=== PATIENT | female | born 1990 | race Caucasian/White ===

== ENCOUNTER 2018-03-22 17:42 | Emergency (ER) | payer OTHER ==
[~2018-03-22] VITALS: Ht 160 cm; Wt 118.2 kg
[2018-03-22] MEDS ORDERED: AMOX500C PO (17:48)
[2018-03-22 18:27] LABS: BASO # 0.1 10^3/uL (0.0-0.2); BASO % 0.8 % (0.0-1.0); EOS # 0.2 10^3/uL (0.0-0.50); EOS % 1.7 % (0.0-3.0); HEMATOCRIT 42.9 % (36.0-47.0); HEMOGLOBIN 14.5 g/dl (12.0-15.5); LYMPH # 2.9 10^3/uL (1.5-6.5); LYMPH % 24.6 % (24.0-44.0); MEAN CORPUSCULAR HEMOGLOBIN 29.7 pg (27.0-33.0); MEAN CORPUSCULAR HGB CONC 33.8 g/dl (32.0-36.5); MEAN CORPUSCULAR VOLUME 87.7 fl (80.0-96.0); MONO # 0.9 10^3/uL (0.0-0.8); MONO % 7.3 % (0.0-5.0); NEUTROPHILS # 7.8 10^3/uL (1.8-7.7); NEUTROPHILS % 65.3 % (36.0-66.0); PLATELET COUNT, AUTOMATED 295 10^3/uL (150-450); RED BLOOD COUNT 4.89 10^6/uL (4.00-5.40); WHITE BLOOD COUNT 11.9 10^3/uL (4.0-10.0)
[2018-03-22 18:59] LABS: APPEARANCE, URINE CLEAR (CLEAR); BACTERIA, URINE AUTO NEGATIVE (NEGATIVE); BILIRUBIN, URINE AUTO NEGATIVE (NEGATIVE); BLOOD, URINE BLOOD 3+ (NEGATIVE); COLOR, URINE YELLOW (YELLOW); GLUCOSE, URINE (UA) AUTO NEGATIVE (NEGATIVE); KETONE, URINE AUTO NEGATIVE (NEGATIVE); LEUKOCYTE ESTERASE, URINE AUTO TRACE (NEGATIVE); MUCUS, URINE SMALL (NEGATIVE); NITRITE, URINE AUTO NEGATIVE (NEGATIVE); PROTEIN, URINE AUTO NEGATIVE (NEGATIVE); RBC, URINE AUTO TNTC /HPF (0-3); SPECIFIC GRAVITY URINE AUTO 1.012 (1.002-1.035); SQUAMOUS EPITHELIAL CELL UR AU 1 /HPF (0-6); UROBILINOGEN, URINE AUTO 0.2 mg/dL (0.0-2.0); WBC, URINE AUTO 12 /HPF (0-3)
--- NOTE | 2018-03-22 19:47 | REPVR ---
EXAM: US First Trimester, Transabdominal and US , Transvaginal EXAM DATE/TIME: 03/22/2018 6:29 PM CLINICAL HISTORY: 28 years old, female; Signs and symptoms; Lmp or gestational age (in weeks): 9w2d; Other: Bleeding; ; Additional info: Vaginal bleeding TECHNIQUE: Real-time transabdominal obstetrical ultrasound of the maternal pelvis and a first trimester , less than 14 weeks 0 days, with image documentation. Transvaginal imaging was used for better evaluation of the fetus and adnexa. COMPARISON: No relevant prior studies available. FINDINGS: GESTATION: Gestation: A single intrauterine gestational sac is visualized. The gestational sac is identified within the lower uterine segment. The yolk sac is not visualized. Heart rate: No heart motion is identified. Placenta: No subchorionic bleed. Amniotic fluid: Amniotic fluid appears subjectively decreased for gestational age. BIOMETRY: Estimated gestational age: The estimated gestational age by crown rump length is 7 weeks 2 days. [place]-Rump length: The mean crown-rump length is 1.18 cm. MATERNAL: Uterus: The uterus measures 8.4 x 5.1 x 5.5 cm. Cervix: Limited evaluation. Right adnexa: The right ovary measures 3.3 x 2.8 x 2.9 cm. Within the right ovary, there is a 1.7 x 1.6 x 1.4 cm probable corpus luteum cyst. Left adnexa: The left ovary measures 2.1 x 2.1 x 2.0 cm. No left ovarian mass. Intraperitoneal: No intraperitoneal free fluid. IMPRESSION: 1. A single intrauterine gestational sac is visualized. No heart motion is identified. The gestational sac is identified within the lower uterine segment. 2. The estimated gestational age by crown rump length is 7 weeks 2 days. 3. The findings are diagnostic of failure based on the [employer] Consensus Conference on Early First Trimester Diagnosis of Miscarriage and Exclusion of a Viable Intrauterine - December 2011. 4. Within the right ovary, there is a 1.7 x 1.6 x 1.4 cm probable corpus luteum cyst. Electronically signed by: Dez Ingram On 03/22/2018 19:46:54 PM
[2018-03-22] MEDS ORDERED: NAPROXEN 250 MG TAB PO ONE (21:00)
[2018-03-22 21:29] VITALS: BP 143/93
== END 2018-03-22 21:31 | disposition home or self-care (01) ==
LOC: M ED 17:42
DX: O03.9 Complete or unspecified spontaneous abortion without complication (principal); I10 Essential (primary) hypertension

== ENCOUNTER → 2018-08-09 | Outpatient (CLI) | payer OTHER ==
[~2018-08-09] MED LIST: AMOX500C PO
--- NOTE | 2018-08-09 13:38 | REP ---
REASON: Right upper quadrant pain. COMPARISON: None. Multiple ultrasonographic images of the liver show the hepatic parenchymal echo pattern to be within normal limits. There is no intrahepatic or extrahepatic ductal dilatation. The common bile duct measures 2 mm in its greatest dimension. Multiple ultrasonographic images of the gallbladder show no abnormalities. The imaged portion of the pancreas and right kidney are normal. There is no free fluid in the abdomen. IMPRESSION: Normal exam. Electronically Signed by Michael Interiano DO 08/09/2018 01:58 P
== END ==
LOC: M RAD 08:55
PROVIDERS: ATTEND Surgery
DX: E28.2 Polycystic ovarian syndrome (principal); R10.11 Right upper quadrant pain

== ENCOUNTER → 2018-11-23 | Outpatient (CLI) | payer OTHER ==
--- NOTE | 2018-11-23 13:24 | REP ---
Right ankle four views : There is no fracture or dislocation. Mineralization and joint spaces are normal. There are no calcifications or foreign bodies. Impression: Negative right ankle . Electronically Signed by Hira Neri MD 11/23/2018 01:16 P
--- NOTE | 2018-11-23 13:25 | REP ---
Right foot four views : There is no fracture or dislocation. Mineralization and joint spaces are normal. There are no calcifications or foreign bodies. Impression: Negative right foot . Electronically Signed by Hira Neri MD 11/23/2018 01:17 P
== END ==
LOC: M LRY 12:49
PROVIDERS: ATTEND Nurse Practitioner Family
DX: S99.911A Unspecified injury of right ankle, initial encounter (principal); S99.921A Unspecified injury of right foot, initial encounter
CPT/HCPCS: 73610; 73630; G0463

== ENCOUNTER → 2019-01-25 | Outpatient (CLI) | payer OTHER ==
--- NOTE | 2019-01-25 09:25 | REP ---
RIGHT UPPER QUADRANT ULTRASOUND: Real-time sonographic evaluation of right upper quadrant performed. Multiple mobile gallstones are seen in the gallbladder. There is no gallbladder wall thickening or pericholecystic fluid. There is no intrahepatic or extrahepatic biliary dilatation, common bile duct measuring 3 mm. Liver and pancreas demonstrate no gross mass. Right kidney demonstrates no hydronephrosis with normal size 10.1 cm in length. There is trace perihepatic fluid. IMPRESSION: Multiple mobile gallstones in the gallbladder without gallbladder wall thickening or biliary dilatation. Trace perihepatic fluid. Electronically Signed by Hira Hodge MD 01/26/2019 10:26 A
== END ==
LOC: M RAD 06:48
PROVIDERS: ATTEND Surgery
DX: K80.20 Calculus of gallbladder without cholecystitis without obstruction (principal)

== ENCOUNTER 2019-02-28 21:21 | Emergency (ER) | payer OTHER ==
[~2019-02-28] VITALS: Ht 162.6 cm; Wt 84.1 kg
[~2019-02-28 21:21] MED LIST changes: -NORA0.35 PO; -PRED20TA PO
[2019-02-28] MEDS ORDERED: NORA0.35 PO (21:37)
[2019-02-28] MEDS ORDERED: IPRATROPIUM 0.5MG/ALBUTEROL 2.5MG INH SOL UD 3ML (DUONEB)(J7620) NEB ONE (22:15)
[2019-02-28 23:14] LABS: BASO # 0.1 10^3/uL (0.0-0.2); BASO % 0.7 % (0.0-1.0); EOS # 0.1 10^3/uL (0.0-0.5); EOS % 1.3 % (0.0-3.0); HEMATOCRIT 38.9 % (36.0-47.0); HEMOGLOBIN 12.8 g/dl (12.0-15.5); LYMPH # 3.6 10^3/uL (1.5-5.0); MEAN CORPUSCULAR HEMOGLOBIN 30.6 pg (27.0-33.0); MEAN CORPUSCULAR HGB CONC 32.9 g/dl (32.0-36.5); MEAN CORPUSCULAR VOLUME 93.1 fl (80.0-96.0); MONO # 0.6 10^3/uL (0.0-0.8); MONO % 5.7 % (0.0-5.0); NEUTROPHILS # 5.9 10^3/uL (1.5-8.5); PLATELET COUNT, AUTOMATED 258 10^3/uL (150-450); RED BLOOD COUNT 4.18 10^6/uL (4.00-5.40); WHITE BLOOD COUNT 10.3 10^3/uL (4.0-10.0)
[2019-02-28 23:49] LABS: INFLUENZA A AMPLIFICATION NEGATIVE (NEGATIVE); INFLUENZA B AMPLIFICATION NEGATIVE (NEGATIVE)
[2019-03-01 00:45] VITALS: BP 116/59
[2019-03-01] MEDS ORDERED: PRED20TA PO (00:52)
[2019-03-01] MEDS ORDERED: ALBUTEROL 90 MCG/ACT 8GM HFA INHALER INH ONE (01:00)
[2019-03-01] MEDS ORDERED: predniSONE 20 MG TAB PO ONE (01:00)
--- NOTE | 2019-03-01 08:07 | REP ---
Clinical: Cough and dyspnea . Comparison: 02/28/2019 . Technique: PA and lateral. Findings: The mediastinum and cardiac silhouette are normal. The lung cervantes are clear and without acute consolidation, effusion, or pneumothorax. The skeletal structures are intact and normal. Impression: 1. No acute cardiopulmonary process. Electronically Signed by Valente Sheldon MD 03/01/2019 07:58 A
== END 2019-03-01 01:12 | disposition home or self-care (01) ==
LOC: M ED 21:21
DX: R06.09 Other forms of dyspnea (principal); Z79.3 Long term (current) use of hormonal contraceptives
CPT/HCPCS: 71046; 80047; 81002; 81025; 84702; 85025; 85379; 86308; 87502; 93005; 93041; 94640; 94760; 99284; G0463

== ENCOUNTER → 2019-02-28 | Outpatient (CLI) | payer OTHER ==
[~2019-02-28] MED LIST changes: +NORA0.35 PO; +PRED20TA PO
--- NOTE | 2019-03-01 08:00 | REP ---
Clinical: Shortness of breath . Comparison: None . Technique: PA and lateral. Findings: The mediastinum and cardiac silhouette are normal. The lung cervantes are clear and without acute consolidation, effusion, or pneumothorax. The skeletal structures are intact and normal. Impression: 1. No acute cardiopulmonary process. Electronically Signed by Valente Sheldon MD 03/01/2019 07:52 A
== END ==
LOC: M LRY 19:58
PROVIDERS: ATTEND Physician Assistant
DX: R06.02 Shortness of breath (principal)

== ENCOUNTER → 2019-04-04 | Outpatient (REF) | payer OTHER ==
[~2019-04-04] MED LIST changes: +NORA0.35 PO; +PRED20TA PO
[2019-04-04 15:47] LABS: CHLAMYDIA DNA AMPLIFICATION NEGATIVE (NEGATIVE); GC DNA AMPLIFICATION NEGATIVE (NEGATIVE)
== END ==
LOC: M SFHCLERA 12:17
PROVIDERS: ATTEND Nurse Practitioner Family
DX: R30.0 Dysuria (principal)
CPT/HCPCS: 81002; 81025; 87086; 87661; G0463

== ENCOUNTER 2019-12-07 23:12 | Inpatient (IN) | payer OTHER ==
[~2019-12-07] VITALS: Ht 162.6 cm; Wt 100.7 kg
[2019-12-07 23:26] VITALS: BP 129/83
[2019-12-07 23:36] VITALS: BP 132/81
[2019-12-07] MEDS ORDERED: UNIS25TA3 PO (23:38)
[2019-12-07] MEDS ORDERED: ZOLO25TA PO (23:38)
[2019-12-07] MEDS ORDERED: PRENTAB9 PO (23:38)
[2019-12-08] VITALS (40 sets, daily range): BP systolic 110–135; BP diastolic 54–87
[2019-12-08 02:12] LABS: HEMATOCRIT 36.6 % (36.0-47.0); HEMOGLOBIN 12.4 g/dl (12.0-15.5); MEAN CORPUSCULAR HEMOGLOBIN 30.1 pg (27.0-33.0); MEAN CORPUSCULAR HGB CONC 33.9 g/dl (32.0-36.5); MEAN CORPUSCULAR VOLUME 88.8 fl (80.0-96.0); PLATELET COUNT, AUTOMATED 202 10^3/uL (150-450); RED BLOOD COUNT 4.12 10^6/uL (4.00-5.40); WHITE BLOOD COUNT 13.5 10^3/uL (4.0-10.0)
[2019-12-08] MEDS ORDERED: FENTANYL 2MCG/ML ROPIVACAINE 0.2% IN 0.9% NACL 100ML IVBAG As Ordered ONE (02:59)
[2019-12-08] MEDS ORDERED: EPIDURAL/PCA KEYS XX PRN (03:10)
[2019-12-08] MEDS ORDERED: ePHEDrine SULFATE 25 MG/5 ML(5MG/ML) SYRINGE IV PRN (03:10)
[2019-12-08] MEDS ORDERED: EPIDURAL COMMENT XX SCH (03:10)
[2019-12-08] MEDS ORDERED: diphenhydrAMINE 50MG/ML VIAL (J1200) IV PRN (03:10)
[2019-12-08] MEDS ORDERED: REFRIGERATOR IV KEYS XX PRN (03:10)
[2019-12-08] MEDS ORDERED: ONDANSETRON 4MG/2ML VIAL IV PRN (03:10)
[2019-12-08] MEDS ORDERED: LACTATED RINGER'S 1000 ML IV PRN (03:10)
[2019-12-08] MEDS ORDERED: NALOXONE INJ 0.4MG/1ML VIAL (J2310 PER 1MG) IV PRN (03:10)
[2019-12-08] MEDS ORDERED: FENTANYL/ROPIVACAINE/NACL BAG 100 ML EPIDURAL SCH (03:10)
--- NOTE | 2019-12-08 03:39 | HPEPDOC ---
Obstetrical History & Physical General Date of Admission Dec 08, 2019 at 01:30 History of Present Illness 29yo at 37+4wks presenting for c/o worsening ctx's since 1900. She reports her ctx's have increased in frequency to now q5min. Patient was observed in triage and made cervical change from 3cm to 5cm in triage. Denies VB, LOF, or DFM. 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 Past Medical History Medical History Obesity Preeclampsia Recurrent loss Depression Anxiety Surgical History: Gallbladder, [place] teeth, Other (Bariatric surgery) Family History Significant Family History: Diabetes, Heart disease, Hypertension Social History Marital Status: Family situation: Spouse/partner home Psychosocial History: Anxiety, Depression * Smoker: non-smoker Alcohol: Denies Drugs: denies Abuse Violence Screening Have you been hit/kicked/slapp: No Have you been sexually assault: No Imunizations Tdap status: current (11/04/2019) Influenza Status: current (Fall 2018) Allergies Coded Allergies: No Known Allergies (Unverified , 03/22/18) Medications Scheduled Doxylamine Succinate (Unisom Sleep Aid) 25 Mg Tablet, 1 TAB PO QPM No.137/Iron/Folic Acd ( Vitamin Tablet) 1 Each Tablet, 1 TAB PO DAILY Sertraline Hcl (Zoloft) 25 Mg Tablet, 75 MG PO DAILY Physical Examination Physical Examination GENERAL: Alert and oriented times three. BREAST: . ABDOMEN: Gravid and non-tender to touch. FETUS: Is vertex (VTX) by sterile vaginal examination (SVE), fetus is vertex (VTX) by [place]. HEART RATE: Regular rate and rhythm. LUNGS: Clear to auscultation (CTA). EXTREMITIES: No edema. No clonus. Deep tendon reflexes (DTRs) + . Vital Signs/I&O Vital Signs Date Time Temp Pulse Resp B/P (MAP) Pulse Ox O2 Delivery O2 Flow Rate FiO2 12/07/19 23:36 83 18 132/81 (98) 12/07/19 23:26 98.4 Laboratory Data 24H LABS Laboratory Tests 2 12/08/19 01:51: Nucleated Red Blood Cells % (auto) 0.0 12/08/19 02:08: Serology Scanned Report Hepatitis B Testing CBC/BMP Laboratory Tests 12/08/19 01:51 Urine Culture: Urinary Tract Infection Pertinent Laboratoy Data Blood Type: A+ RBC Antibody Screen: Negative HIV: Negative Hepatitis B: Negative Rapid Plasma Reagin: Nonreactive Rubella: Immune Varicella: Immune Chlamydia/Gonorrhea: Negative Group B Streptococcus: Negative Quad Screen Test: Negative (M21 test low-risk) Cystic Fibrosis: Negative Glucose Tolerance Test: -1 (Unable to tolerate - 2 weeks of FS normal) Anatomy Ultrasound Ultrasound Date: Aug 09, 2019 Placenta Location: Anterior Normal Anatomy: Yes Placenta Previa: No Other Ultrasounds [id number] - EFW 60th percentile Vaginal Examination Dilation: 5 cm Effacement: 60% Station: -3 Cervical Consistency: Soft Cervical Position: Middle Presentation: Cephalic presentation Assessment Heart Rate (FHR): 135 Variability: Moderate Accelerations: Positive Decelerations: None Tocometer Contractions: Yes Frequency: every 2-5 min. Multi-drug resistant Organism: No history of MDRO Assessment/Plan Assessment 29yo at 37+4wks presenting for c/o worsening painful ctx's and found to make cervical change in triage to 5/60/-3. Patient noted to be in active labor. Plan Admit and orient. Customer Leader and consent. Diet: clears as tolerated. Group B Streptococcus (GBS) [negative]. Labs and intravenous (IV) per unit protocol. Counseled on AROM, Pitocin and augmentation of labor if indicated. Lactated Ringers (LR): Bolus 1000 mL, then at 125 mL/hr. Patient may have epidural if desired. Continuous EFM, may internalize if indicated Anticipate normal spontaneous delivery. C-S as appropriate. UMA NEW DO Dec 08, 2019 03:39
--- NOTE | 2019-12-08 04:42 | IPNPDOC ---
Obstetrical Progress Note Date of Service Dec 08, 2019 Subjective Patient reports feeling comfortable with epidural in place. Denies any complaints. Desires to proceed with AROM for augmentation of labor. Objective Vital Signs Date Time Temp Pulse Resp B/P (MAP) Pulse Ox O2 Delivery O2 Flow Rate FiO2 12/08/19 03:51 79 18 124/73 (90) 12/07/19 23:26 98.4 Assessment Heart Rate (FHR): 125 Variability: Moderate Accelerations: Positive Decelerations: None Heart Rate Tracing: Category I Tocometer Contractions: Yes Frequency: irregular Sterile Vaginal Examination Dilation: 6 cm Effacement (%): 80% Station: -2 Cervical Consistency: Soft Cervical Position: Anterior Postion/Presentation: Cephalic presentation Assessment and Plan Status: Reassuring Group B Streptococcus: Negative Anticipate: Vaginal Delivery Additional Comments 29yo at 37+4wks presenting in active labor and continuing to make spontaneous cervical change. SVE 6/80/-2. FHRT cat I. Patient counseled on r/b/a/i of AROM and desired to proceed. AROM performed notable for clear fluid. Will encourage positional changes while closely monitoring for expectant . UMA NEW DO Dec 08, 2019 04:42
[2019-12-08] MEDS ORDERED: OXYTOCIN 30 UNITS IN 0.9% NaCl 500ML IV BAG (J2590) As Ordered ONE (05:15)
--- NOTE | 2019-12-08 06:54 | IPNPDOC ---
Obstetrical Progress Note Date of Service Dec 08, 2019 Subjective Patient reports feeling pelvic pressure. Reports epidural is adequate. Objective Vital Signs Date Time Temp Pulse Resp B/P (MAP) Pulse Ox O2 Delivery O2 Flow Rate FiO2 12/08/19 06:20 74 18 110/65 (80) 12/08/19 05:19 98.0 Assessment Heart Rate (FHR): 120 Variability: Moderate Accelerations: Positive Decelerations: Early Heart Rate Tracing: Category I Tocometer Contractions: Yes Frequency: every 2-5 min. Sterile Vaginal Examination Dilation: 7 cm Effacement (%): 100% Station: -1 Cervical Consistency: Soft Cervical Position: Anterior Postion/Presentation: Cephalic presentation Assessment and Plan Status: Reassuring Group B Streptococcus: Negative Anticipate: Vaginal Delivery Additional Comments FHRT cat I. SVE now 7/c/-1. Pitocin protocol at 8mU/min due to inadequate ctx's after AROM. Patient clinically doing well. Will await expectant . UMA NEW DO Dec 08, 2019 06:54
--- NOTE | 2019-12-08 08:10 | IPNPDOC ---
Obstetrical Progress Note Date of Service Dec 08, 2019 Subjective Pt resting comfortably in right lateral position, states intermittent pressure with contractions Objective Vital Signs Date Time Temp Pulse Resp B/P (MAP) Pulse Ox O2 Delivery O2 Flow Rate FiO2 12/08/19 07:21 77 20 111/54 (73) 12/08/19 07:09 97.9 99 Room Air Assessment Heart Rate (FHR): 120 Variability: Moderate Accelerations: Positive Decelerations: None Heart Rate Tracing: Category I Tocometer Contractions: Yes Frequency: regular, every 2-2 min. Assessment and Plan Status: Reassuring Anticipate: Vaginal Delivery Additional Comments A:29yo @37+4, A+, GBS-, in augmentation of labor at term P:Lr @125ml/hr, continuous efm x2, continue pitocin augmentation and titrate per protocol, monitor for change in or maternal status, anticipate vaginal delivery. KB REILLY CNM Dec 08, 2019 08:10
[2019-12-08] MEDS ORDERED: SERTRALINE HCL 25 MG TABLET PO SCH ×2 (09:00→21:00)
--- NOTE | 2019-12-08 09:12 | DNPDOC ---
[facility] Delivery Note Delivery Note DATE OF DELIVERY: 08Dec2019 PREDELIVERY DIAGNOSIS: 37-4/7 weeks' gestation and labor. POST DELIVERY DIAGNOSIS: Delivered. 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 ESTIMATED BLOOD LOSS: 50 mL. FINDINGS: 6 pound 15 ounce male , Score 8/9, nuchal cord times 1, and body cord x 1. DELIVERY SUMMARY: Patient is a 29-year-old 6 now para 3-0-3-3 who was admitted to labor and delivery for term labor on 08Dec2019. Cheli c/o pressure and shaking and was found to be C/C/+2 at 0824. Brisk decent was made to in HARDEEP presentation with a compound left hand. A nuchal cord and body cord were noted with delivery. The right anterior shoulder delivered easily followed by the posterior shoulder. The was somersaulted towards the maternal right thigh and the cord manually reduced. The male was placed immediately skin to skin on the maternal abdomen where he was dried and stimulated to cry. Pitocin infusion was initiated per protocol. The cord was clamped x 2 y the CNM after pulsation ceased and cut by the patient. The placenta delivered spontaneously intact in kota presentation with minimal bleeding. The fundus firmed immediately and the cervix was swept with o clots located. Examination revealed an intact perineum with a hemostatic left labial abrasion. Mother and baby entered the recovery phase in stable condition. YESSY REILLY CNM Dec 08, 2019 09:12
[2019-12-08] MEDS ORDERED: OXYTOCIN DRIP 30 UNITS in IV 1 EA IV SCH (09:13)
[2019-12-08] MEDS ORDERED: ACETAMINOPHEN 500 MG TAB PO PRN (09:15)
[2019-12-08] MEDS ORDERED: MEASLES,MUMPS,RUBELLA VACCINE INJ (MMR-II) (90707) SC SCH (09:15)
[2019-12-08] MEDS ORDERED: DOCUSATE SODIUM 100 MG CAP PO PRN (09:15)
[2019-12-08] MEDS ORDERED: DIBUCAINE 1% OINTMENT 30GM TOP PRN (09:15)
[2019-12-08] MEDS ORDERED: METHYLERGONOVINE MALEATE 0.2 MG TAB PO PRN (09:15)
[2019-12-08] MEDS ORDERED: diphenhydrAMINE 25MG CAP PO ONE (10:00)
[2019-12-08] MEDS: PRENATAL VITAMINS CHEWABLE TABLET PO SCH (10:12)
[2019-12-08] MEDS: IBUPROFEN 800 MG TAB PO PRN ×2 (10:13→20:00)
[2019-12-09 06:00] VITALS: BP 123/80
--- NOTE | 2019-12-09 06:27 | IPNPDOC ---
Progress Note Date of Service: Dec 09, 2019 Day#: 1 Progress Note SUBJECT: 29yo PPD1 s/p uncomplicated . She has been ambulating, void ing spontaneously without issue and tolerating regular diet. Breast feeding without issue. Reports lochia is less than a normal period. Patient is ambulating well. Denies any pain. Voiding and stooling without difficulty. APC History of bariatric surgery Mental disorders of History of preeclampsia OBJECTIVE: VITAL SIGNS: Within normal limits, afebrile. Alert and oriented times three. Pulm: no increased WOB Cards: non-tachy Abdomen: Fundus firm at U-2. Soft, NTTP. Minimal lochia. ASSESSMENT: 29yo PPD1 s/p uncomplicated . Vitals within normal limits, afebrile, hemodynamically stable with no evidence of infection. PLAN: 1. Discharge to home today. 2. Tylenol and Motrin for pain. 3. Encourage breast feeding and ambulation. 4. desires IUD in 6wk for contraception 5. Routine PP visit in 6 weeks in clinic. 6. Discussed return precautions at length. VS, I&O, 24H, Fishbone Vital Signs/I&O Vital Signs Date Time Temp Pulse Resp B/P (MAP) Pulse Ox O2 Delivery O2 Flow Rate FiO2 12/08/19 18:00 97.7 79 17 124/72 (89) 98 Room Air I&O- Last 24 Hours up to 6 AM 12/09/19 06:00 Intake Total 1778.0 ml Output Total 2200 ml Balance -422.0 ml SUELLEN WALTER DO Dec 09, 2019 06:27
[2019-12-09] MEDS: PRENATAL VITAMINS CHEWABLE TABLET PO SCH (08:23)
--- NOTE | 2020-01-10 11:43 | IPN ---
DATE: 12/08/2019 This patient requested circumcision of her male . After discussing risks and benefits of circumcision, the medical and the non-medical indications, penile block and aftercare, expressed understanding of the penile block and after care. Signed the consent form. All questions were answered, 20 minute discussion. We await the clearance by the marine geologist. MARÍA
== END 2019-12-09 16:15 | disposition home or self-care (01) | DRG 807 ==
LOC: M LDO 23:12 → M LDI 12-08 01:30 → M OBS 12-08 14:59
PROC: 10E0XZZ Delivery of Products of Conception, External Approach (ICD-10-PCS; principal; 2019-12-08)
DX: O32.6XX0 Maternal care for compound presentation, not applicable or unspecified (principal); Z37.0 Single live birth; Z3A.37 37 weeks gestation of pregnancy; O69.81X0 Labor and delivery complicated by cord around neck, without compression, not applicable or unspecified; O69.82X0 Labor and delivery complicated by other cord entanglement, without compression, not applicable or unspecified

== ENCOUNTER 2019-12-25 01:14 | Observation (INO) | payer OTHER ==
[~2019-12-25] VITALS: Ht 162.6 cm; Wt 92.3 kg
[~2019-12-25 01:14] MED LIST changes: +PRENTAB9 PO; +UNIS25TA3 PO; +ZOLO25TA PO
[2019-12-25] MEDS ORDERED: DIPH50CA PO (01:26)
[2019-12-25 02:08] LABS: BASO # 0.1 10^3/uL (0.0-0.2); BASO % 0.7 % (0.0-1.0); EOS # 0.2 10^3/uL (0.0-0.5); EOS % 1.5 % (0.0-3.0); HEMATOCRIT 42.1 % (36.0-47.0); HEMOGLOBIN 13.7 g/dl (12.0-15.5); LYMPH # 3.4 10^3/uL (1.5-5.0); MEAN CORPUSCULAR HEMOGLOBIN 29.1 pg (27.0-33.0); MEAN CORPUSCULAR HGB CONC 32.5 g/dl (32.0-36.5); MEAN CORPUSCULAR VOLUME 89.4 fl (80.0-96.0); MONO # 0.8 10^3/uL (0.0-0.8); MONO % 7.4 % (0.0-5.0); NEUTROPHILS # 6.2 10^3/uL (1.5-8.5); PLATELET COUNT, AUTOMATED 243 10^3/uL (150-450); RED BLOOD COUNT 4.71 10^6/uL (4.00-5.40); WHITE BLOOD COUNT 10.8 10^3/uL (4.0-10.0)
[2019-12-25 02:48] LABS: ALBUMIN 3.6 GM/DL (3.2-5.2); ALT/SGPT 21 U/L (12-78); BILIRUBIN,DIRECT < 0.1 MG/DL (0.0-0.2); BILIRUBIN,TOTAL 0.3 MG/DL (0.2-1.0); TOTAL PROTEIN 7.2 GM/DL (6.4-8.2)
[2019-12-25 02:59] LABS: CREATININE,RANDOM URINE < 13.0 MG/DL; TOTAL PROTEIN,RANDOM URINE < 5.0 MG/DL (0.0-12.0)
[2019-12-25 05:38] LABS: CREATININE FOR GFR 0.75 MG/DL (0.55-1.30); GLOMERULAR FILTRATION RATE > 60.0 (>60); LDH LACTATE DEHYDROGENASE 352 U/L (84-246)
[2019-12-25 05:59] LABS: TOTAL PROTEIN,RANDOM URINE 5.9 MG/DL (0.0-12.0)
[2019-12-25 06:00] VITALS: BP 124/77
--- NOTE | 2019-12-25 06:36 | IPNPDOC ---
Text Note Date of Service The patient was seen on 12/25/19. NOTE Vital Signs Date Time Temp Pulse Resp B/P (MAP) Pulse Ox O2 Delivery O2 Flow Rate FiO2 12/25/19 06:00 97.7 68 18 124/77 (93) Room Air 12/25/19 04:49 97.8 56 16 127/83 (98) 97 Room Air 12/25/19 04:43 69 97 12/25/19 04:28 69 98 12/25/19 04:13 62 97 12/25/19 03:58 62 97 12/25/19 03:43 62 97 12/25/19 03:28 76 16 136/91 (106) 98 Room Air 12/25/19 03:15 65 96 Room Air 12/25/19 03:00 147/78 (101) 12/25/19 02:59 65 98 12/25/19 02:46 170/90 (116) 12/25/19 02:44 66 97 12/25/19 02:30 151/93 (112) 12/25/19 02:29 65 97 12/25/19 02:15 128/87 (101) 12/25/19 02:14 69 98 12/25/19 02:05 133/90 (104) 12/25/19 02:00 136/85 (102) 12/25/19 01:59 65 97 12/25/19 01:45 141/97 (112) 12/25/19 01:44 71 97 12/25/19 01:39 Room Air 12/25/19 01:39 71 16 141/94 98 Room Air 12/25/19 01:38 141/94 (110) 12/25/19 01:14 97.9 94 16 164/112 (129) 98 Room Air Laboratory Tests 12/25/19 01:50: White Blood Count 10.8H, Red Blood Count 4.71, Hemoglobin 13.7, Hematocrit 42.1, Mean Corpuscular Volume 89.4, Mean Corpuscular Hemoglobin 29.1, Mean Corpuscular Hemoglobin Concent 32.5, Red Cell Distribution Width 11.8, Platelet Count 243, Immature Granulocyte % (Auto) 0.4, Neutrophils (%) (Auto) 58.0, Lymphocytes (%) (Auto) 32.0, Monocytes (%) (Auto) 7.4H, Eosinophils (%) (Auto) 1.5, Basophils (%) (Auto) 0.7, Neutrophils # (Auto) 6.2, Lymphocytes # (Auto) 3.4, Monocytes # (Auto) 0.8, Eosinophils # (Auto) 0.2, Basophils # (Auto) 0.1, Nucleated Red Blood Cells % (auto) 0.0, Urine Color STRAW, Urine Appearance CLEAR, Urine pH 6.0, Urine Specific [place] 1.001L, Urine Protein NEGATIVE, Urine Glucose (UA) NEGATIVE, Urine Ketones NEGATIVE, Urine Blood NEGATIVE, Urine Nitrite NEGATIVE, Urine Bilirubin NEGATIVE, Urine Urobilinogen 0.2, Urine Leukocyte Esterase TRACEH, Urine WBC (Auto) 3, Urine RBC (Auto) 0, Urine Hyaline Casts (Auto) 0, Urine Bacteria (Auto) NEGATIVE, Urine Squamous Epithelial Cells 0, Urine Sperm (Auto) , Urine Random Creatinine < 13.0, Urine Random Total Protein < 5.0, Creatinine 0.75, Glomerular Filtration Rate > 60.0, Uric Acid 5.0, Total Bilirubin 0.3, Direct Bilirubin < 0.1, Aspartate Amino Transf (AST/SGOT) 24, Alanine Aminotransferase (ALT/SGPT) 21, Alkaline Phosphatase 107, Lactate Dehydrogenase 352H, Total Protein 7.2, Albumin 3.6, Albumin/Globulin Ratio 1.0L 12/25/19 02:02: POC Glucose (Misc Panel) 80, POC Sodium (Misc Panel) 142, POC Potassium (Misc Panel) 3.9, POC Chloride (Misc Panel) 104, POC Total CO2 (Misc Panel) 25.0, POC Blood Urea Nitrogen (Misc Panel 19, POC Ionized Calcium (Misc Panel) 5.1, POC Creatinine (Misc Panel) 0.7, POC Hematocrit (Misc Panel) 45.0 12/25/19 02:09: POC Troponin I (Misc) 0.02 12/25/19 03:16: Coronavirus (COVID-19)(PCR) NEGATIVE 12/25/19 05:26: Urine Random Creatinine 50.0, Urine Random Total Protein 5.9 Laboratory Tests 12/25/19 01:50 PATIENT CALLED RE MONITERING BP WAS 161/97 DENIES HEADACHE RUQ PAIN NO NAUSEA VOMITING NO VISUAL DISTURBANCES WAS TOLD TO WATCH FOR PRE E . REVIEWED DELIVERY NO EVIDENCE OF PRE E NO SEVERE RANGE BP ONLY 1 MID RANGE . SEEN IN ED ALL PRE E LABS NORMAL P/C RATIO .1 WHILE IN ED ONLY MID RANGE BP HERE IN L AND D BP 124/77 INITIAL BP 134/91. ON ZOLOFT HAD PRESSURE BACK OF HEAD RESOLVED VS,Fishbone, I+O VS, Fishbone, I+O Laboratory Tests 12/25/19 01:50 Vital Signs Date Time Temp Pulse Resp B/P (MAP) Pulse Ox O2 Delivery O2 Flow Rate FiO2 12/25/19 06:00 97.7 68 18 124/77 (93) Room Air 12/25/19 04:49 97 Samy Bruner MD Dec 25, 2019 06:36
--- NOTE | 2019-12-25 20:50 | ECGEPIP ---
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
== END 2019-12-25 06:50 | disposition home or self-care (01) ==
LOC: M ED 01:14 → M LDI 05:10
PROVIDERS: ADMIT Obstetrics & Gynecology; ATTEND Obstetrics & Gynecology
DX: O15.2 Eclampsia complicating the puerperium (principal)
CPT/HCPCS: 80047; 80076; 81001; 82247; 82565; 82570; 83615; 84156; 84450; 84460; 84484; 84550; 85025; 87086; 93005; 99285; U0002